=== PATIENT | male | born 1940 | race Caucasian/White ===

== ENCOUNTER 2019-12-30 11:38 | Emergency (ER) | payer MEDICARE, OTHER ==
[2019-12-30 12:19] LABS: Bacteria/HPF 4+ HPF (None Seen); Bilirubin Negative (Negative); Blood, Urine 3+ (Negative); Clarity Extra Turbid (Clear); Glucose, Urine (Dipstick) Normal (Negative); Ketone, Urine Negative (Negative); Leukocyte 500 Leu/uL (Negative); Nitrite 1+ (Negative); Protein, Urine (Dipstick) 100 mg/dL (Neg-Trace); RBC/HPF Greater than 50 HPF (0-3); Specific Gravity, Urine 1.017 (1.002-1.036); Squamous Epithelial None Seen HPF (0-3); Urobilinogen Normal mg/dL (Less than 2); WBC/HPF Greater than 50 HPF (0-3)
[2019-12-30 13:30] LABS: #Eosinphils 0.1 thou/uL (0.0-0.7); #Lymphocytes 1.8 thou/uL (1.20-3.40); #Monocytes 1.1 thou/uL (0.11-0.59); %Basophils 0.2 % (0.0-1.0); %Eosinophils 0.9 % (0.0-10.0); %Lymphocytes 16.1 % (21.0-51.0); %Neutrophils 72.7 % (42.0-75.0); Hemoglobin 15.4 g/dL (14.0-18.0); Mean Corpuscular HGB CONC 34.5 g/dL (32.0-36.0); Mean Corpuscular Hemoglobin 29.5 pg (27.0-31.0); Mean Corpuscular Volume 85.7 fL (78.0-98.0); Mean Platelet Volume 7.1 fL (7.4-10.4); Platelet Count 332 thou/uL (130-400); RBC Distribution Width 14.1 % (11.5-14.5); Red Blood Cell (RBC) Count 5.22 mill/uL (4.70-6.10)
[2019-12-30 13:46] LABS: ALT (SGPT) 19 U/L (8-55); AST (SGOT) 17 U/L (5-34); Albumin 4.3 g/dL (3.4-4.8); Alkaline Phosphatase 65 U/L (40-110); Anion Gap 16 mmol/L (10-20); BUN (Urea Nitrogen) 17 mg/dL (8.4-25.7); Bilirubin, Total 0.9 mg/dL (0.2-1.2); Calc. Creatinine Clearance 0 mL/min (70-130); Calcium 9.7 mg/dL (7.8-10.44); Carbon Dioxide 26 mmol/L (23-31); Chloride 98 mmol/L (98-107); Estimated GFR-MDRD 78; Globulin 3.7 g/dL (2.4-3.5); Glucose 100 mg/dL (83-110); Potassium 3.7 mmol/L (3.5-5.1); Sodium 136 mmol/L (136-145)
== END 2019-12-30 14:41 | disposition home or self-care (01) ==
LOC: ERS 11:38
DX: N39.0 Urinary tract infection, site not specified (principal); E11.9 Type 2 diabetes mellitus without complications; E78.5 Hyperlipidemia, unspecified; I10 Essential (primary) hypertension; M85.80 Other specified disorders of bone density and structure, unspecified site; Z79.899 Other long term (current) drug therapy; Z79.84 Long term (current) use of oral hypoglycemic drugs; Z79.82 Long term (current) use of aspirin
CPT/HCPCS: 36415; 80053; 81003; 81015; 85025; 87077; 87086; 87186; 99283

== ENCOUNTER 2020-01-04 16:23 | Emergency (ER) | payer MEDICARE, OTHER ==
[2020-01-04 17:22] LABS: #Basophils 0.1 thou/uL (0.0-0.2); #Eosinphils 0.2 thou/uL (0.0-0.7); #Lymphocytes 1.8 thou/uL (1.20-3.40); #Monocytes 1.1 thou/uL (0.11-0.59); #Neutrophils 6.8 thou/uL (1.40-6.50); %Basophils 0.5 % (0.0-1.0); %Eosinophils 2.2 % (0.0-10.0); %Lymphocytes 18.2 % (21.0-51.0); %Monocytes 10.8 % (0.0-10.0); %Neutrophils 68.4 % (42.0-75.0); Hemoglobin 15.1 g/dL (14.0-18.0); Mean Corpuscular HGB CONC 31.7 g/dL (32.0-36.0); Mean Corpuscular Hemoglobin 27.7 pg (27.0-31.0); Mean Corpuscular Volume 87.3 fL (78.0-98.0); Mean Platelet Volume 6.8 fL (7.4-10.4); Platelet Count 466 thou/uL (130-400); RBC Distribution Width 13.9 % (11.5-14.5); Red Blood Cell (RBC) Count 5.44 mill/uL (4.70-6.10); White Blood Cell (WBC) Count 9.9 thou/uL (4.8-10.8)
[2020-01-04 17:30] LABS: Clarity Cloudy (Clear)
[2020-01-04 17:31] LABS: Leukocyte Large (Negative); Nitrite Positive (Negative)
[2020-01-04 17:32] LABS: Glucose, Urine (Dipstick) Negative (Negative); Ketone, Urine Negative (Negative); Protein, Urine (Dipstick) 300 mg/dL (Neg-Trace)
[2020-01-04 17:33] LABS: Bilirubin Negative (Negative); Blood, Urine 1+ (Negative); Urobilinogen 0.2 mg/dL (Less than 2)
[2020-01-04 17:41] LABS: Bacteria/HPF 4+ HPF (None Seen); Squamous Epithelial None Seen HPF (0-3); WBC/HPF Greater Than 50 HPF (0-3)
[2020-01-04 17:42] LABS: ALT (SGPT) 15 U/L (8-55); AST (SGOT) 19 U/L (5-34); Albumin 4.1 g/dL (3.4-4.8); Alkaline Phosphatase 67 U/L (40-110); Anion Gap 16 mmol/L (10-20); BUN (Urea Nitrogen) 19 mg/dL (8.4-25.7); Bilirubin, Total 0.4 mg/dL (0.2-1.2); Calc. Creatinine Clearance 0 mL/min (70-130); Calcium 9.9 mg/dL (7.8-10.44); Carbon Dioxide 27 mmol/L (23-31); Chloride 96 mmol/L (98-107); Estimated GFR-MDRD 67; Glucose 96 mg/dL (83-110); Potassium 3.7 mmol/L (3.5-5.1); Protein, Total 8.1 g/dL (5.8-8.1); Sodium 135 mmol/L (136-145)
[2020-01-04] MEDS ORDERED: Lidocaine 1% (PF) 30 ML VIAL ONE (22:29)
[2020-01-04] MEDS ORDERED: Lidocaine Viscous Sol 2% 15 ml UD Cup ONE (22:30)
--- NOTE | 2020-01-05 16:48 | CON ---
DATE OF CONSULTATION: 01/04/2020 CONSULTING: Emergency room. REASON FOR CONSULTATION: Urinary retention with inability to pass Chowdhury catheter. CHIEF COMPLAINT: "My bladder hurts very bad." HISTORY OF PRESENT ILLNESS: Mr. Davis is a 79-year-old white male, who initially presented to the emergency room for the second time with complaints of dysuria, bladder pain, and inability to urinate adequately. He has a relatively complicated history, initiating several years ago when the patient was initially diagnosed with prostate cancer, he was treated at [facility] initially with attempts at an open prostatectomy. However, it was noted the patient had metastatic cancer and his prostatectomy was aborted. After healing, he underwent radiation therapy with androgen deprivation. His cancer has subsequently been in remission, and although I do not have his PSA results, he states his PSA has been stable and extremely low. He had been urinating without problems without any significant urgency, frequency, or incontinence up until he underwent a cervical spinal fusion around August of 2019. Subsequently, the patient had a Chowdhury catheter postoperatively, had a significant amount of hematuria. The patient was not aware of what happened while the catheter was being placed. After the catheter was removed, the patient began urinating normally and the hematuria cleared up. However, his urine stream started to worsen with increasing evidence of burning and pain with urination. He was found to have a urinary tract infection and was treated with antibiotics. He did well for several months until November when he began having similar symptoms with dysuria and bladder pain. He was found to have another urinary tract infection and was given antibiotics again. Although, he was able to urinate, his urinary stream progressively worsened over the next several days to the point where he was having significant difficulty with urination along with bladder pain. He came back into the emergency room today without any complaints of fevers or hematuria, but stating that he is having significant bladder pain and dysuria with inability to urinate. A bladder scan in the emergency room demonstrated approximately 500 mL of urine. I had recommended through telephone consultation the patient have a catheter placed and then follow up with his doctors at [facility] as he does have a urologist there already. After attempts at placing a catheter were unsuccessful, I was consulted to come in to see the patient, at which point, I discussed the history with the patient. He currently reports he is still having significant amounts of bladder pain, approximately 6/10 with inability to urinate. He denies any fevers. No hematuria. He is having dysuria. He is having urgency and frequency. He denies any chest pain or shortness of breath. ALLERGIES: 1. CODEINE. 2. ETHER. 3. FLOMAX. 4. PENICILLIN. HOME MEDICATIONS: 1. Nifedipine. 2. Aspirin. 3. Vitamin C. 4. Fenofibrate. 5. Metformin. 6. Testosterone. 7. Hydrochlorothiazide. 8. Niacin. 9. Cimetidine. 10. Omnicef. PAST MEDICAL HISTORY: 1. Prostate cancer. 2. Osteopenia. 3. Mixed urinary incontinence. 4. Diabetes mellitus type 2. 5. Hyperlipidemia. 6. Hypertension. PAST SURGICAL HISTORY: 1. Cervical fusion. 2. Attempts at open prostatectomy, which was aborted. 3. Radiation to the prostate. FAMILY HISTORY: Noncontributory for malignancy. SOCIAL HISTORY: The patient denies alcohol abuse or illicit drug use, and has no smoking history. He lives at home with his family. REVIEW OF SYSTEMS: A 12-point review of system was reviewed and negative other than what was commented on the HPI. PHYSICAL EXAMINATION: VITAL SIGNS: Temperature 98.4, pulse 96, blood pressure 149/80, respirations 16, saturation 97% on room air. Pain is currently 7/10. GENERAL: Appears slightly uncomfortable, but otherwise is answering questions appropriately. Appears stated age, well nourished, well developed. HEENT: Normocephalic and atraumatic. Pupils are symmetric and round. Sclerae are nonicteric. Trachea midline. CARDIOVASCULAR: Regular rate and rhythm. Normal S1 and S2. Symmetric pulses. CHEST: Nonlabored breathing. Symmetric expansion. LUNGS: Clear anteriorly. ABDOMEN: Soft, nondistended. Suprapubic tenderness is present with a mildly palpable bladder. No CVA tenderness. No obvious organomegaly minus the bladder. Well-healed lower midline incision without hernia. Positive bowel sounds. : The patient is uncircumcised, but has no evidence of phimosis. Glans appears normal. Meatus is in normal location. No blood at the meatus. Penis is otherwise nonfocal. Testes are bilaterally descended. No scrotal edema or abnormalities. Rectal exam is deferred at this time. EXTREMITIES: No clubbing, cyanosis, or edema. MUSCULOSKELETAL: No joint deformities or joint erythema noted. NEUROLOGIC: Cranial nerves 2 through 12 are grossly intact. No focal or sensory or motor deficits identified. Gait is normal. SKIN: Warm and dry. No rashes or lesions. Good turgor. PSYCHIATRIC: Alert and oriented x3. Appropriate mood and affect. LABORATORY EVALUATION: The full set of labs is in the [facility], which I have reviewed. Of note, the patient's white count is 9.9 with hemoglobin of 15.1. Creatinine is 1.07. Urinalysis demonstrates nitrite positive urine with greater than 50 white cells, 11 to 20 red cells, 4+ bacteria. Urine culture from the prior ER visit in November is growing Enterococcus and Pseudomonas, which is pansensitive except to tetracycline. PROCEDURE: After discussing with the patient to perform a cystoscopy due to inability to pass catheters previously, the patient was verbally consented and has agreed to proceed with cystoscopy. He was prepped and draped in used usual sterile fashion. Intraurethral lidocaine was administered for anesthesia. A 16-Moldovan cystoscope was then advanced through the urethra up to the urethral sphincter. 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 The cystoscope could not be advanced past this. We were able to guide an Amplatz Super Stiff wire through the sphincter, which went into the bladder. The cystoscope was then removed, leaving the Super Stiff wire in place. Using Chase dilators starting at 18-Moldovan, the 18-Moldovan dilator was passed with minimal difficulty through the stricture, which appeared relatively soft. There was immediate release of urine through the Chase sound. The sound was then removed, leaving the wire in place. A 16-Moldovan [place] tip catheter was then advanced over the Super Stiff wire, which was then passed into the patient's bladder. 10 mL of sterile water was placed into the balloon and then the wire removed. The balloon was then seated against the patient's prostate and then hooked up to gravity drainage. The catheter bag drained approximately 450 mL, and approximately 200 mL were spilled onto the bed during the procedure. Toward the end of the drainage, the urine turned from clear yellow to bloody with turbid urine. The catheter was then irrigated with approximately 500 mL of normal saline with evacuation of mild amount of clots and some turbid urine. Some of this urine was sent off for repeat urine culture. The catheter was affixed to the patient's leg with a StatLock. He tolerated the procedure well. Blood loss was minimal. 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 He has undergone a catheter placement with dilation. I gave the patient my card and told him that he may follow up with me if desired. However, he already has urologist at [facility], and given that he underwent a simple dilation in a radiated prostate, it is unlikely that the stricture will remain open. Since [facility] does have dedicated reconstructive surgeons, I recommended that he follow up with his urologist at [facility] and discuss long-term treatment plans for his Chowdhury catheter. He was given instructions on leg bag and gravity bag drainage. I recommended he change his antibiotics from Omnicef to ciprofloxacin, which will have better coverage for Enterococcus and Pseudomonas. I also advised him to drink plenty of water and avoid strenuous activity, to flush his catheter out. Should he have any other immediate problems with his catheter, he can always contact me. Otherwise, he will follow up with me on a p.r.n. basis and return back to his urologist at [facility]. Job ID: [id number]
== END 2020-01-04 23:25 | disposition home or self-care (01) ==
LOC: ERS 16:23
DX: N39.0 Urinary tract infection, site not specified (principal); R33.9 Retention of urine, unspecified; E11.9 Type 2 diabetes mellitus without complications; E78.5 Hyperlipidemia, unspecified; I10 Essential (primary) hypertension; Z79.899 Other long term (current) drug therapy
CPT/HCPCS: 36415; 51703; 80053; 81003; 81015; 83605; 85025; J2001